=== PATIENT | female | born 1945 | race Caucasian/White ===

== ENCOUNTER 2023-05-14 11:34 | Inpatient (IN) | payer MEDICARE ==
[~2023-05-14] VITALS: Ht 152.4 cm; Wt 61.2 kg
[~2023-05-14 11:34] MED LIST: ALEN70TA80 PO; ASPI81TA31 PO; ATOR10TA PO; BUPR300T52 PO; CHOL200074 PO; CITA20TA16 PO; FEXO180T94 PO; FLUT16SP16 NS; FOLI1TAB94 PO; GABA-532 PO; LOSA100T31 PO; MECL-159 PO; MULT-1168 PO; OMEP20CA15 PO; TIOT18CA3 IH; TRAZ-182 PO; URSO250T3 PO; [UNRECOGNIZED DRUG - CODE] PO
[2023-05-15] MEDS ORDERED: REMEDY ESSENTIAL ZINC PASTE 113 GM TOP PRN (20:15)
[2023-05-15 20:37] VITALS: BP 137/66; TEMP 98.3; O2SAT 96
--- NOTE | 2023-05-15 21:00 | NUR ---
RECEIVED PATIENT LYING IN BED, AWAKE A/O X4, ABLE TO MAKE NEEDS KNOWN. VS WNL. IV SITE ON RIGHT FOREARM 22G, INTACT AND PATENT. ON O2 2LPM VIA NC SATING AT 96%. DENIES ANY PAIN OR DISCOMFORT. NO RESP. DISTRESS OR SOB NOTED. CALL LIGHT WITHIN REACH. ALL NEEDS ATTENDED TO AND MET. SAFETY PRECAUTIONS MAINTAINED. WILL CONTINUE TO MONITOR AND ASSESS.
[2023-05-15] MEDS ORDERED: TRAMADOL HCL 50 MG TABLET PO SCH (22:00)
[2023-05-15] MEDS ORDERED: TRAZODONE 50 MG TABLET PO PRN (22:15)
[2023-05-16 05:17] VITALS: BP 142/70; TEMP 98.7; O2SAT 97
[2023-05-16 05:52] VITALS: O2SAT 96
[2023-05-16] MEDS: PANTOPRAZOLE SODIUM 40 MG TABLET.DR PO SCH (06:18)
--- NOTE | 2023-05-16 07:30 | NUR ---
Patient awake and alert in bed. RN introduced self and discussed plan of care. No other concerns at this time.
[2023-05-16 07:44] VITALS: BP 138/65; TEMP 98.6; O2SAT 98
[2023-05-16 07:56] VITALS: BP 158/54; TEMP 98.1; O2SAT 97
[2023-05-16] MEDS: FEXOFENADINE HCL 180 MG TABLET PO SCH (09:13)
[2023-05-16] MEDS: CHOLECALCIFEROL 1,000 UNIT TABLET PO SCH (09:13)
[2023-05-16] MEDS: CITALOPRAM 20 MG TABLET PO SCH (09:14)
[2023-05-16] MEDS: MECLIZINE HCL 25 MG TABLET PO SCH ×2 (09:14→16:59)
[2023-05-16] MEDS: URSODIOL 300 MG CAPSULE PO SCH ×2 (09:14→16:59)
[2023-05-16] MEDS: FOLIC ACID 1 MG TABLET PO SCH (09:15)
[2023-05-16] MEDS: GABAPENTIN 100 MG CAPSULE PO SCH ×3 (09:15→16:59)
[2023-05-16] MEDS: MULTIVITAMINS,THERAPEUTIC TABLET PO SCH (09:15)
[2023-05-16] MEDS: buPROPion XL 150 MG TAB.SR.24H PO SCH (09:15)
[2023-05-16] MEDS: CALCIUM CITRA-VITAMIN D 315 MG-250 UNITS TABLET PO SCH (09:16)
[2023-05-16] MEDS: LOSARTAN POTASSIUM 50 MG TABLET PO SCH (09:17)
[2023-05-16] MEDS: ASPIRIN 81 MG TAB.CHEW PO SCH (09:22)
[2023-05-16] MEDS: TRAMADOL HCL 50 MG TABLET PO PRN (09:26)
[2023-05-16] MEDS: FLUTICASONE PROP NASAL SPRAY 16 GM BOTTLE NS SCH (09:37)
[2023-05-16] MEDS: ENOXAPARIN SODIUM 30 MG/0.3 ML DISP.SYRIN SUBCUT SCH (12:53)
[2023-05-16] MEDS ORDERED: HYDR-894 PO (15:48)
[2023-05-16] MEDS ORDERED: AMLO-212 PO (15:49)
[2023-05-16 16:00] VITALS: BP 132/63; TEMP 97.7; O2SAT 99
[2023-05-16] MEDS ORDERED: hydrALAZINE HCL 25 MG TABLET PO PRN (16:00)
[2023-05-16] MEDS ORDERED: FLUT1BLS IH (18:10)
[2023-05-16] MEDS: AMLODIPINE 5 MG TABLET PO SCH (20:07)
[2023-05-16] MEDS: ATORVASTATIN 10 MG TABLET PO SCH (20:07)
[2023-05-16 20:31] VITALS: BP 104/54; TEMP 98.7; O2SAT 93
[2023-05-17 02:10] VITALS: O2SAT 96
[2023-05-17 04:40] VITALS: BP 127/70; TEMP 98.4; O2SAT 98
--- NOTE | 2023-05-17 04:52 | NUR ---
Patient slept well throughout the night, no acute distress noted. Needs assessed and attended to.
[2023-05-17] MEDS: PANTOPRAZOLE SODIUM 40 MG TABLET.DR PO SCH (06:17)
[2023-05-17 07:33] LABS: HEMATOCRIT 25.6 % (31.2-41.9); MEAN CORPUSCULAR HEMOGLOBIN 27.9 uug (24.7-32.8); MEAN CORPUSCULAR VOLUME 87.6 fL (75.5-95.3); PLATELET COUNT (AUTO) 245 K/uL (179-408)
[2023-05-17 07:44] LABS: BILIRUBIN,TOTAL 0.3 mg/dL (0.2-1.0); MAGNESIUM 1.7 mg/dL (1.8-2.4); PHOSPHOROUS 3.3 mg/dL (2.5-4.9); POTASSIUM 4.3 mmol/L (3.5-5.1); TOTAL PROTEIN, SERUM 5.4 g/dL (6.4-8.2)
[2023-05-17 07:54] VITALS: BP 131/68; TEMP 98; O2SAT 96
[2023-05-17] MEDS: ENOXAPARIN SODIUM 30 MG/0.3 ML DISP.SYRIN SUBCUT SCH (08:12)
[2023-05-17] MEDS: FOLIC ACID 1 MG TABLET PO SCH (08:22)
[2023-05-17] MEDS: CITALOPRAM 20 MG TABLET PO SCH (08:22)
[2023-05-17] MEDS: CALCIUM CITRA-VITAMIN D 315 MG-250 UNITS TABLET PO SCH (08:22)
[2023-05-17] MEDS: AMLODIPINE 5 MG TABLET PO SCH ×2 (08:22→20:56)
[2023-05-17] MEDS: GABAPENTIN 100 MG CAPSULE PO SCH ×3 (08:22→16:21)
[2023-05-17] MEDS: buPROPion XL 150 MG TAB.SR.24H PO SCH (08:22)
[2023-05-17] MEDS: MECLIZINE HCL 25 MG TABLET PO SCH ×2 (08:23→16:21)
[2023-05-17] MEDS: CHOLECALCIFEROL 1,000 UNIT TABLET PO SCH (08:23)
[2023-05-17] MEDS: ASPIRIN 81 MG TAB.CHEW PO SCH (08:23)
[2023-05-17] MEDS: LOSARTAN POTASSIUM 50 MG TABLET PO SCH (08:23)
[2023-05-17] MEDS: MULTIVITAMINS,THERAPEUTIC TABLET PO SCH (08:23)
[2023-05-17] MEDS: FEXOFENADINE HCL 180 MG TABLET PO SCH (08:23)
[2023-05-17] MEDS: FLUTICASONE/VILANTEROL 1 EACH BLST.W.DEV INH SCH (08:24)
[2023-05-17] MEDS: FLUTICASONE PROP NASAL SPRAY 16 GM BOTTLE NS SCH (08:24)
[2023-05-17] MEDS: URSODIOL 300 MG CAPSULE PO SCH ×2 (08:26→16:23)
[2023-05-17] MEDS ORDERED: MAGNESIUM OXIDE 400 MG TABLET PO ONE ×2 (10:00→12:30)
[2023-05-17 11:20] VITALS: O2SAT 96
[2023-05-17] MEDS: MIRALAX 17 GM POWD.PACK PO SCH (14:40)
[2023-05-17] MEDS: TRAMADOL HCL 50 MG TABLET PO PRN (15:18)
[2023-05-17 15:48] VITALS: BP 103/56; TEMP 98.3; O2SAT 96
--- NOTE | 2023-05-17 20:00 | NUR ---
Received patient laying in bed, alert and oriented X3-4, often forgetful, potentially hard of hearing. In no acute distress, denies pain. IV site patent and intact, call light within reach. Will continue to monitor and continue plan of care.
[2023-05-17 20:34] VITALS: BP 113/63; TEMP 98.7; O2SAT 96
[2023-05-17] MEDS: ATORVASTATIN 10 MG TABLET PO SCH (20:56)
[2023-05-18 04:20] VITALS: BP 117/59; TEMP 98.7; O2SAT 98
[2023-05-18] MEDS: PANTOPRAZOLE SODIUM 40 MG TABLET.DR PO SCH (06:42)
[2023-05-18 07:50] VITALS: BP 141/65; TEMP 98.4; O2SAT 99
[2023-05-18] MEDS: LOSARTAN POTASSIUM 50 MG TABLET PO SCH (08:08)
[2023-05-18] MEDS: MECLIZINE HCL 25 MG TABLET PO SCH ×2 (08:08→16:25)
[2023-05-18] MEDS: ASPIRIN 81 MG TAB.CHEW PO SCH (08:08)
[2023-05-18] MEDS: CALCIUM CITRA-VITAMIN D 315 MG-250 UNITS TABLET PO SCH (08:09)
[2023-05-18] MEDS: CHOLECALCIFEROL 1,000 UNIT TABLET PO SCH (08:09)
[2023-05-18] MEDS: buPROPion XL 150 MG TAB.SR.24H PO SCH (08:09)
[2023-05-18] MEDS: GABAPENTIN 100 MG CAPSULE PO SCH ×3 (08:14→16:25)
[2023-05-18] MEDS: FEXOFENADINE HCL 180 MG TABLET PO SCH (08:14)
[2023-05-18] MEDS: FOLIC ACID 1 MG TABLET PO SCH (08:14)
[2023-05-18] MEDS: CITALOPRAM 20 MG TABLET PO SCH (08:14)
[2023-05-18] MEDS: MULTIVITAMINS,THERAPEUTIC TABLET PO SCH (08:14)
[2023-05-18] MEDS: MIRALAX 17 GM POWD.PACK PO SCH (08:15)
[2023-05-18] MEDS: FLUTICASONE/VILANTEROL 1 EACH BLST.W.DEV INH SCH (08:15)
[2023-05-18] MEDS: FLUTICASONE PROP NASAL SPRAY 16 GM BOTTLE NS SCH (08:15)
[2023-05-18] MEDS: AMLODIPINE 5 MG TABLET PO SCH ×2 (08:15→21:24)
[2023-05-18] MEDS: TRAMADOL HCL 50 MG TABLET PO PRN (08:17)
[2023-05-18] MEDS: ENOXAPARIN SODIUM 30 MG/0.3 ML DISP.SYRIN SUBCUT SCH (08:38)
[2023-05-18] MEDS: URSODIOL 300 MG CAPSULE PO SCH ×2 (08:38→16:25)
--- NOTE | 2023-05-18 11:31 | NUR ---
INDIVIDUALIZED PLAN OF CARE
[2023-05-18 13:16] VITALS: O2SAT 96
[2023-05-18 16:01] VITALS: BP 114/66; TEMP 98.5; O2SAT 95
[2023-05-18 20:00] VITALS: BP 122/57; TEMP 98.3; O2SAT 94
[2023-05-18] MEDS: ATORVASTATIN 10 MG TABLET PO SCH (21:24)
[2023-05-19 04:00] VITALS: BP 121/57; TEMP 98.7; O2SAT 96
[2023-05-19] MEDS: ALENDRONATE SODIUM 70 MG TABLET PO SCH (05:18)
--- NOTE | 2023-05-19 05:31 | NUR ---
Pt received in bed with Purewick system in place observed yellow urine color. Pt took fine her PO medication. No family present to update plan of care. Pt rested well all night without any discomfort. Endorse care to incoming nurse
[2023-05-19] MEDS: PANTOPRAZOLE SODIUM 40 MG TABLET.DR PO SCH (06:17)
[2023-05-19 08:00] VITALS: BP 132/70; TEMP 97.6; O2SAT 97
--- NOTE | 2023-05-19 08:00 | NUR ---
Received patient lying in bed, alert, awake and oriented X3-4, often forgetful, potentially hard of hearing In no acute distress, denies pain. IV site at RFA g.20 patent and intact, call light within reach Vital signs taken and recorded. Medications given and tolerated Seen and examined by Dr. Garay, continue plan of care, continue PT and OT Monitor intake and output Observed accordingly, needs attended.
[2023-05-19] MEDS: FEXOFENADINE HCL 180 MG TABLET PO SCH (08:25)
[2023-05-19] MEDS: ASPIRIN 81 MG TAB.CHEW PO SCH (08:25)
[2023-05-19] MEDS: CITALOPRAM 20 MG TABLET PO SCH (08:25)
[2023-05-19] MEDS: CHOLECALCIFEROL 1,000 UNIT TABLET PO SCH (08:25)
[2023-05-19] MEDS: buPROPion XL 150 MG TAB.SR.24H PO SCH (08:26)
[2023-05-19] MEDS: AMLODIPINE 5 MG TABLET PO SCH ×2 (08:26→20:30)
[2023-05-19] MEDS: CALCIUM CITRA-VITAMIN D 315 MG-250 UNITS TABLET PO SCH (08:27)
[2023-05-19] MEDS: MIRALAX 17 GM POWD.PACK PO SCH (08:32)
[2023-05-19] MEDS: MULTIVITAMINS,THERAPEUTIC TABLET PO SCH (08:32)
[2023-05-19] MEDS: GABAPENTIN 100 MG CAPSULE PO SCH ×3 (08:32→16:37)
[2023-05-19] MEDS: URSODIOL 300 MG CAPSULE PO SCH ×2 (08:32→16:37)
[2023-05-19] MEDS: LOSARTAN POTASSIUM 50 MG TABLET PO SCH (08:33)
[2023-05-19] MEDS: MECLIZINE HCL 25 MG TABLET PO SCH ×2 (08:33→16:37)
[2023-05-19] MEDS: FOLIC ACID 1 MG TABLET PO SCH (08:33)
[2023-05-19] MEDS: FLUTICASONE/VILANTEROL 1 EACH BLST.W.DEV INH SCH (08:34)
[2023-05-19] MEDS: FLUTICASONE PROP NASAL SPRAY 16 GM BOTTLE NS SCH (08:34)
[2023-05-19] MEDS: ENOXAPARIN SODIUM 30 MG/0.3 ML DISP.SYRIN SUBCUT SCH (08:37)
[2023-05-19 12:00] VITALS: O2SAT 96
--- NOTE | 2023-05-19 13:40 | NUR ---
Seen patient asleep comfortably in bed, no acute change from morning assessment. No signs of distress or discomfort Attended
[2023-05-19] MEDS: TRAMADOL HCL 50 MG TABLET PO PRN (14:37)
[2023-05-19 16:24] VITALS: BP 103/52; TEMP 98.1; O2SAT 96
[2023-05-19 20:00] VITALS: BP 101/47; TEMP 98.1; O2SAT 98
[2023-05-19] MEDS: ATORVASTATIN 10 MG TABLET PO SCH (20:30)
[2023-05-20 04:00] VITALS: BP 108/58; TEMP 98.5; O2SAT 98
--- NOTE | 2023-05-20 06:13 | NUR ---
Pt received in bed denies any pain and refuses any sleeping medication, pt drinks plenty fluids and purewick was removed Pt incontinent pericare done after every incontinence. Pt took her PO Meds without any difficult, continue monitoring condition and endorse care to incoming nurse
[2023-05-20] MEDS: PANTOPRAZOLE SODIUM 40 MG TABLET.DR PO SCH (06:37)
--- NOTE | 2023-05-20 06:39 | NUR ---
Pt awakes this AM pleasant and agrees to place a purewick system. Pt remains in bed comfortable purewick in place.
[2023-05-20 07:46] VITALS: BP 136/53; TEMP 98.2; O2SAT 100
[2023-05-20] MEDS: FEXOFENADINE HCL 180 MG TABLET PO SCH (08:49)
[2023-05-20] MEDS: buPROPion XL 150 MG TAB.SR.24H PO SCH (08:49)
[2023-05-20] MEDS: MULTIVITAMINS,THERAPEUTIC TABLET PO SCH (08:50)
[2023-05-20] MEDS: LOSARTAN POTASSIUM 50 MG TABLET PO SCH (08:50)
[2023-05-20] MEDS: CHOLECALCIFEROL 1,000 UNIT TABLET PO SCH (08:50)
[2023-05-20] MEDS: CALCIUM CITRA-VITAMIN D 315 MG-250 UNITS TABLET PO SCH (08:50)
[2023-05-20] MEDS: GABAPENTIN 100 MG CAPSULE PO SCH ×3 (08:50→16:33)
[2023-05-20] MEDS: AMLODIPINE 5 MG TABLET PO SCH ×2 (08:50→20:38)
[2023-05-20] MEDS: ASPIRIN 81 MG TAB.CHEW PO SCH (08:50)
[2023-05-20] MEDS: CITALOPRAM 20 MG TABLET PO SCH (08:50)
[2023-05-20] MEDS: MECLIZINE HCL 25 MG TABLET PO SCH ×2 (08:50→16:33)
[2023-05-20] MEDS: MIRALAX 17 GM POWD.PACK PO SCH (08:51)
[2023-05-20] MEDS: URSODIOL 300 MG CAPSULE PO SCH ×2 (08:51→16:34)
[2023-05-20] MEDS: FLUTICASONE/VILANTEROL 1 EACH BLST.W.DEV INH SCH (08:51)
[2023-05-20] MEDS: FLUTICASONE PROP NASAL SPRAY 16 GM BOTTLE NS SCH (08:52)
[2023-05-20] MEDS: ENOXAPARIN SODIUM 30 MG/0.3 ML DISP.SYRIN SUBCUT SCH (08:53)
[2023-05-20] MEDS: FOLIC ACID 1 MG TABLET PO SCH (08:57)
--- NOTE | 2023-05-20 13:23 | NUR ---
Received patient lying in bed, alert, awake and oriented X3-4, often forgetful, potentially hard of hearing In no acute distress, denies pain, no SOB. With oxygen at 2 lpm via nasal cannula. IV site at RFA g.20 patent and intact, call light within reach. Vital signs taken and recorded. Medications given and tolerated Seen and examined by Dr. Garay, continue plan of care, continue PT and OT Monitor intake and output Seen by physical therapist Observed accordingly, needs attended.
[2023-05-20] MEDS: OXYCODONE/APAP 5-325 MG TABLET PO SCH ×2 (13:30→22:00)
[2023-05-20 16:48] VITALS: BP 94/42; TEMP 97.9; O2SAT 93
[2023-05-20 20:00] VITALS: BP 94/46; TEMP 97.8; O2SAT 96
[2023-05-20] MEDS: ATORVASTATIN 10 MG TABLET PO SCH (20:38)
--- NOTE | 2023-05-20 22:30 | NUR ---
PATIENT ASLEEP IN BED. NO S/S OF ANY PAIN OR DISCOMFORT. NO FACIAL GRIMACE NOTED. LOW BP NOTED. 95/45. WILL CONTINUE TO MONITOR AND ASSESS.
[2023-05-21] VITALS (8 sets, daily range): BP systolic 87–135; BP diastolic 38–68; TEMP 97.5–98.9; O2SAT 93–98
[2023-05-21] MEDS: OXYCODONE/APAP 5-325 MG TABLET PO SCH ×3 (05:05→21:52)
[2023-05-21] MEDS: PANTOPRAZOLE SODIUM 40 MG TABLET.DR PO SCH (06:03)
[2023-05-21] MEDS: LOSARTAN POTASSIUM 50 MG TABLET PO SCH (08:23)
[2023-05-21] MEDS: CALCIUM CITRA-VITAMIN D 315 MG-250 UNITS TABLET PO SCH (08:23)
[2023-05-21] MEDS: ASPIRIN 81 MG TAB.CHEW PO SCH (08:23)
[2023-05-21] MEDS: AMLODIPINE 5 MG TABLET PO SCH ×2 (08:23→21:48)
[2023-05-21] MEDS: CITALOPRAM 20 MG TABLET PO SCH (08:23)
[2023-05-21] MEDS: FEXOFENADINE HCL 180 MG TABLET PO SCH (08:23)
[2023-05-21] MEDS: buPROPion XL 150 MG TAB.SR.24H PO SCH (08:23)
[2023-05-21] MEDS: MULTIVITAMINS,THERAPEUTIC TABLET PO SCH (08:24)
[2023-05-21] MEDS: GABAPENTIN 100 MG CAPSULE PO SCH ×3 (08:24→16:39)
[2023-05-21] MEDS: CHOLECALCIFEROL 1,000 UNIT TABLET PO SCH (08:24)
[2023-05-21] MEDS: FLUTICASONE PROP NASAL SPRAY 16 GM BOTTLE NS SCH (08:24)
[2023-05-21] MEDS: URSODIOL 300 MG CAPSULE PO SCH ×2 (08:24→16:39)
[2023-05-21] MEDS: MECLIZINE HCL 25 MG TABLET PO SCH ×2 (08:24→16:39)
[2023-05-21] MEDS: FLUTICASONE/VILANTEROL 1 EACH BLST.W.DEV INH SCH (08:24)
[2023-05-21] MEDS: FOLIC ACID 1 MG TABLET PO SCH (08:24)
[2023-05-21] MEDS: MIRALAX 17 GM POWD.PACK PO SCH (08:25)
[2023-05-21] MEDS: ENOXAPARIN SODIUM 30 MG/0.3 ML DISP.SYRIN SUBCUT SCH (08:26)
--- NOTE | 2023-05-21 09:42 | NUR ---
0730-Rec'd patient in bed, asleep, able to wake up on verbal commands. Patient denies pain, no respiratory distress noted, oxygen via nc @ 2lpm and saturating well. Patient Wol[place] speaking, able to communicate her needs and follow directions. Safety measures in place and call light at reach. 0900-Scheduled medications administered as ordered, no ASE noted. Patient eating breakfast at this time, denies GI discomfort, no N/V noted, assist as needed.
--- NOTE | 2023-05-21 18:17 | NUR ---
1700-Patient in bed at this time, meal tray delivered and assist to set up meal tray, patient able to feed herself. HOB elevated, no swallowing problems noted. Patient in no physical or respiratory distress, denies GI discomfort/any pain & raj. meals well through out the shift. Assist provided as needed; care provided at routine intervals/PRN. Routine rounds and frequent visual checks done. Call lights answered promptly and timely. All needs anticipated and met.
[2023-05-21] MEDS: ATORVASTATIN 10 MG TABLET PO SCH (21:48)
[2023-05-22] VITALS (9 sets, daily range): BP systolic 90–115; BP diastolic 43–69; TEMP 97.8–98.4; O2SAT 96–99
[2023-05-22] MEDS: PANTOPRAZOLE SODIUM 40 MG TABLET.DR PO SCH (06:16)
[2023-05-22] MEDS: OXYCODONE/APAP 5-325 MG TABLET PO SCH ×3 (06:16→22:00)
[2023-05-22] MEDS: FLUTICASONE/VILANTEROL 1 EACH BLST.W.DEV INH SCH (08:50)
[2023-05-22] MEDS: FLUTICASONE PROP NASAL SPRAY 16 GM BOTTLE NS SCH (08:50)
[2023-05-22] MEDS: FEXOFENADINE HCL 180 MG TABLET PO SCH (08:51)
[2023-05-22] MEDS: AMLODIPINE 5 MG TABLET PO SCH (08:51)
[2023-05-22] MEDS: CHOLECALCIFEROL 1,000 UNIT TABLET PO SCH (08:51)
[2023-05-22] MEDS: ASPIRIN 81 MG TAB.CHEW PO SCH (08:51)
[2023-05-22] MEDS: LOSARTAN POTASSIUM 50 MG TABLET PO SCH (08:52)
[2023-05-22] MEDS: GABAPENTIN 100 MG CAPSULE PO SCH ×3 (08:52→16:18)
[2023-05-22] MEDS: MIRALAX 17 GM POWD.PACK PO SCH (08:53)
[2023-05-22] MEDS: MECLIZINE HCL 25 MG TABLET PO SCH ×2 (08:53→16:18)
[2023-05-22] MEDS: FOLIC ACID 1 MG TABLET PO SCH (08:53)
[2023-05-22] MEDS: CITALOPRAM 20 MG TABLET PO SCH (08:53)
[2023-05-22] MEDS: CALCIUM CITRA-VITAMIN D 315 MG-250 UNITS TABLET PO SCH (08:53)
[2023-05-22] MEDS: buPROPion XL 150 MG TAB.SR.24H PO SCH (08:53)
[2023-05-22] MEDS: MULTIVITAMINS,THERAPEUTIC TABLET PO SCH (08:53)
[2023-05-22] MEDS: GLUCERNA SHAKE 237 ML CAN PO SCH (08:59)
[2023-05-22] MEDS: URSODIOL 300 MG CAPSULE PO SCH ×2 (09:28→16:18)
--- NOTE | 2023-05-22 10:18 | NUR ---
INTERDISCIPLINARY TEAM CONFERENCE
--- NOTE | 2023-05-22 12:46 | NUR ---
0730-Upon shift exchange rounds, patient in bed with HOB elevated, awake, AOx3, able to follow simple directions and verbalize her needs. Patient denies pain, no SS of respiratory distress noted, on oxygen via N/C as ordered and raj. well. Safety measures in place and call light at reach, encouraged to use it for help when needed with good understanding. 0900-Scheduled medications administered as ordered, no ASE noted, will monitor. HOB elevated, aspiration precautions observed. 1100-OOB with PT for her physical therapy session, raj. well and actively able to participate in therapy.
--- NOTE | 2023-05-22 17:46 | NUR ---
0900-[facility] and Cozaar held at this time due to low blood pressure, patient with no s/s hypotension, denies lightheadedness or dizziness. Dr. Cameron informed acknowledged and agreed to hold medication at this time.
--- NOTE | 2023-05-22 19:10 | NUR ---
Patient in usual baseline conditions, no changes noted during shift. Assisted to the restroom as needed. Care provided at routine intervals and as needed. Patient was seen by Dr. Barriga (can coverer) & per MD to try weaning patient off the oxygen; however, patient states she has always used oxygen, and willing to try off of oxygen but desaturated. Patient back on oxygen at 2LPM and raj. well. OOB with rehab staff for her PT/OT skilled services as ordered, patient raj. well and actively involved in therapy. Safety precautions observed. Needs anticipated and met. Kept clean/comfortable. Call lights answered promptly and needs met timely. Pain well managed.
[2023-05-22] MEDS: ATORVASTATIN 10 MG TABLET PO SCH (20:42)
[2023-05-23 04:00] VITALS: BP 124/57; TEMP 98.1; O2SAT 100
--- NOTE | 2023-05-23 05:50 | NUR ---
Patient in stable condition, no acute distress, slept well throughout the night. Pain medication administered as scheduled. Needs assessed and attended to.
[2023-05-23] MEDS: OXYCODONE/APAP 5-325 MG TABLET PO SCH ×3 (05:53→21:17)
[2023-05-23] MEDS: PANTOPRAZOLE SODIUM 40 MG TABLET.DR PO SCH (06:10)
[2023-05-23 07:23] LABS: ALANINE AMINOTRANSFERASE 37 U/L (14-59); ALKALINE PHOSPHATASE 328 U/L (50-136); ASPARTATE AMINOTRANSFERASE 32 U/L (15-37); BILIRUBIN,TOTAL 0.3 mg/dL (0.2-1.0); CARBON DIOXIDE 32 mmol/L (21-32); CHLORIDE 102 mmol/L (98-107); CREATININE 1.4 mg/dL (0.6-1.3); MAGNESIUM 2.1 mg/dL (1.8-2.4); PHOSPHOROUS 3.9 mg/dL (2.5-4.9); POTASSIUM 4.6 mmol/L (3.5-5.1); UREA NITROGEN, BLOOD 34 mg/dL (7-18)
[2023-05-23 07:26] LABS: HEMATOCRIT 22.2 % (31.2-41.9); MEAN CORPUSCULAR HEMOGLOBIN 27.2 uug (24.7-32.8); MEAN CORPUSCULAR VOLUME 84.2 fL (75.5-95.3); PLATELET COUNT (AUTO) 313 K/uL (179-408)
[2023-05-23 07:45] VITALS: BP 121/61; TEMP 97.8; O2SAT 96
--- NOTE | 2023-05-23 07:47 | NUR ---
received lab result glucose of 52. rechecked 78, patient is alert, oriented x4, no sweating, asymptomatic. apple juice given, patient drank it. continue to monitor. MD aware.
[2023-05-23] MEDS: FLUTICASONE/VILANTEROL 1 EACH BLST.W.DEV INH SCH (09:33)
[2023-05-23] MEDS: FLUTICASONE PROP NASAL SPRAY 16 GM BOTTLE NS SCH (09:34)
[2023-05-23] MEDS: MIRALAX 17 GM POWD.PACK PO SCH (09:35)
[2023-05-23] MEDS: MULTIVITAMINS,THERAPEUTIC TABLET PO SCH (09:35)
[2023-05-23] MEDS: CHOLECALCIFEROL 1,000 UNIT TABLET PO SCH (09:35)
[2023-05-23] MEDS: CALCIUM CITRA-VITAMIN D 315 MG-250 UNITS TABLET PO SCH (09:35)
[2023-05-23] MEDS: URSODIOL 300 MG CAPSULE PO SCH ×2 (09:35→17:32)
[2023-05-23] MEDS: ASPIRIN 81 MG TAB.CHEW PO SCH (09:36)
[2023-05-23] MEDS: MECLIZINE HCL 25 MG TABLET PO SCH ×2 (09:36→17:32)
[2023-05-23] MEDS: FOLIC ACID 1 MG TABLET PO SCH (09:36)
[2023-05-23] MEDS: buPROPion XL 150 MG TAB.SR.24H PO SCH (09:36)
[2023-05-23] MEDS: FEXOFENADINE HCL 180 MG TABLET PO SCH (09:36)
[2023-05-23] MEDS: CITALOPRAM 20 MG TABLET PO SCH (09:36)
[2023-05-23] MEDS: GABAPENTIN 100 MG CAPSULE PO SCH ×3 (09:38→17:32)
[2023-05-23] MEDS: AMLODIPINE 5 MG TABLET PO SCH ×2 (09:40→20:55)
[2023-05-23] MEDS: GLUCERNA SHAKE 237 ML CAN PO SCH (09:41)
[2023-05-23] MEDS ORDERED: IV D5/ 0.9% NACL 1,000 ML IV PRN (10:15)
[2023-05-23 15:51] VITALS: BP 121/64; TEMP 98.3; O2SAT 97
--- NOTE | 2023-05-23 19:56 | NUR ---
NSG; Received patient lying in bed, alert, awake and oriented X3-4, Patient potentially hard of hearing In no acute distress, skin color pale. Denies pain, no SOB. With oxygen at 2l/min via nasal cannula. IV site at RFA g.20 patent and intact, call light within reach.
[2023-05-23] MEDS: ATORVASTATIN 10 MG TABLET PO SCH (20:55)
[2023-05-23 21:09] VITALS: BP 111/51; TEMP 97.5; O2SAT 98
--- NOTE | 2023-05-24 00:42 | NUR ---
NSG; patient asleep comfortably in bed, No signs of distress noted at this time. call light w/in reach.
[2023-05-24 05:26] VITALS: BP 143/64; TEMP 97.9; O2SAT 95
[2023-05-24] MEDS: OXYCODONE/APAP 5-325 MG TABLET PO SCH ×3 (06:11→22:02)
[2023-05-24] MEDS: PANTOPRAZOLE SODIUM 40 MG TABLET.DR PO SCH (06:11)
[2023-05-24] MEDS: ALENDRONATE SODIUM 70 MG TABLET PO SCH (06:12)
[2023-05-24 06:38] LABS: HEMATOCRIT 22.1 % (31.2-41.9); MEAN CORPUSCULAR HEMOGLOBIN 27.2 uug (24.7-32.8); MEAN CORPUSCULAR VOLUME 84.5 fL (75.5-95.3); PLATELET COUNT (AUTO) 283 K/uL (179-408)
--- NOTE | 2023-05-24 06:42 | NUR ---
NSG: REMAIN CALM AND COMFORTABLE. NO C/O PAIN OR DISCOMFORT AT THIS TIME. ASSISTED WITH ADL'S. CALL LIGHT W/IN REACH.
[2023-05-24 07:01] LABS: ALANINE AMINOTRANSFERASE 31 U/L (14-59); ALKALINE PHOSPHATASE 306 U/L (50-136); ASPARTATE AMINOTRANSFERASE 28 U/L (15-37); BILIRUBIN,TOTAL 0.5 mg/dL (0.2-1.0); CARBON DIOXIDE 31 mmol/L (21-32); CHLORIDE 104 mmol/L (98-107); MAGNESIUM 1.7 mg/dL (1.8-2.4); PHOSPHOROUS 3.1 mg/dL (2.5-4.9); POTASSIUM 3.7 mmol/L (3.5-5.1); TOTAL PROTEIN, SERUM 5.7 g/dL (6.4-8.2); UREA NITROGEN, BLOOD 22 mg/dL (7-18)
[2023-05-24 07:24] LABS: *BILIRUBIN,URIN NEGATIVE (NEGATIVE); *BLOOD, URINE NEGATIVE (NEGATIVE); *CLARITY,URINE CLEAR (CLEAR); *COLOR,URINE YELLOW (YELLOW); *KETONES,URINE NEGATIVE (NEGATIVE); *UROBILINOGEN,URINE 0.2 E.U./dl (NORMAL); LEUKOCYTE ESTERASE ,URINE NEGATIVE (NEGATIVE); NITRITE, URINE NEGATIVE (NEGATIVE); PH,URINE 7.5 (5.0-8.0); UGLUCOSE NEGATIVE (NEGATIVE)
[2023-05-24] MEDS: FEXOFENADINE HCL 180 MG TABLET PO SCH (08:00)
[2023-05-24] MEDS: AMLODIPINE 5 MG TABLET PO SCH ×2 (08:00→20:48)
[2023-05-24] MEDS: MULTIVITAMINS,THERAPEUTIC TABLET PO SCH (08:00)
[2023-05-24] MEDS: URSODIOL 300 MG CAPSULE PO SCH ×2 (08:00→17:09)
[2023-05-24] MEDS: GABAPENTIN 100 MG CAPSULE PO SCH ×3 (08:01→17:09)
[2023-05-24] MEDS: CHOLECALCIFEROL 1,000 UNIT TABLET PO SCH (08:01)
[2023-05-24] MEDS: CITALOPRAM 20 MG TABLET PO SCH (08:01)
[2023-05-24] MEDS: buPROPion XL 150 MG TAB.SR.24H PO SCH (08:01)
[2023-05-24] MEDS: FOLIC ACID 1 MG TABLET PO SCH (08:01)
[2023-05-24] MEDS: CALCIUM CITRA-VITAMIN D 315 MG-250 UNITS TABLET PO SCH (08:02)
[2023-05-24] MEDS: ASPIRIN 81 MG TAB.CHEW PO SCH (08:02)
[2023-05-24] MEDS: MECLIZINE HCL 25 MG TABLET PO SCH ×2 (08:02→17:09)
[2023-05-24] MEDS: FLUTICASONE/VILANTEROL 1 EACH BLST.W.DEV INH SCH (08:03)
[2023-05-24] MEDS: GLUCERNA SHAKE 237 ML CAN PO SCH (08:04)
[2023-05-24] MEDS: FLUTICASONE PROP NASAL SPRAY 16 GM BOTTLE NS SCH (08:04)
[2023-05-24 08:05] VITALS: BP 114/69; TEMP 97.9; O2SAT 98
[2023-05-24] MEDS: MIRALAX 17 GM POWD.PACK PO SCH (08:05)
[2023-05-24 08:09] LABS: *CREATININE,URINE < 13.0 mg/dL (30-125)
[2023-05-24 08:31] LABS: *URINE TOTAL PROTEIN RANDOM < 6.0 mg/dL (<150/24HR)
[2023-05-24] MEDS ORDERED: MAGNESIUM OXIDE 400 MG TABLET PO ONE ×2 (10:00→12:15)
[2023-05-24 12:00] VITALS: O2SAT 98
[2023-05-24 16:00] VITALS: BP 126/62; TEMP 97.8; O2SAT 95
[2023-05-24 18:05] LABS: *OCCULT BLOOD STOOL NEGATIVE (NEGATIVE)
[2023-05-24] MEDS ORDERED: FUROSEMIDE 20 MG/2 ML VIAL IV ONE (19:15)
--- NOTE | 2023-05-24 19:18 | NUR ---
noted with audible wheezing, md aware, lasix as ordered, IV fluids dcd
--- NOTE | 2023-05-24 19:26 | NUR ---
NSG; Received patient lying in bed, alert, awake and oriented X4, Patient potentially hard of hearing In no acute distress, skin color pale. Denies pain, no SOB. With oxygen at 4L/min via nasal cannula. IV site at RFA g.20 patent and intact, call light within reach.
[2023-05-24] MEDS: ATORVASTATIN 10 MG TABLET PO SCH (20:48)
[2023-05-24 22:17] VITALS: BP 138/76; TEMP 98.5; O2SAT 94
--- NOTE | 2023-05-24 22:33 | NUR ---
NSG: Patient voided 700ml clear urine after Lasix 20 mg iv given. no sob noted pt resting comfortably. call light w/in reach.
[2023-05-25 04:30] VITALS: BP 133/56; TEMP 98.2; O2SAT 100
--- NOTE | 2023-05-25 05:04 | NUR ---
NSG: RESTING IN BED COMFORTABLY. REMAIN CALM AND COMFORTABLE. NO C/O PAIN OR DISCOMFORT AT THIS TIME. ASSISTED WITH ADL'S. CALL LIGHT W/IN REACH.
--- NOTE | 2023-05-25 05:13 | NUR ---
NSG: REMAIN CALM AND COMFORTABLE. NO C/O PAIN OR DISCOMFORT AT THIS TIME. ASSISTED WITH ADL'S. CALL LIGHT W/IN REACH.
[2023-05-25] MEDS: OXYCODONE/APAP 5-325 MG TABLET PO SCH ×2 (05:35→13:13)
[2023-05-25] MEDS: PANTOPRAZOLE SODIUM 40 MG TABLET.DR PO SCH (05:58)
[2023-05-25 07:31] LABS: HEMATOCRIT 26.4 % (31.2-41.9); MEAN CORPUSCULAR HEMOGLOBIN 27.1 uug (24.7-32.8); MEAN CORPUSCULAR VOLUME 84.4 fL (75.5-95.3); PLATELET COUNT (AUTO) 357 K/uL (179-408)
[2023-05-25 07:36] VITALS: BP 140/70; TEMP 98.7; O2SAT 99
[2023-05-25 07:52] LABS: CARBON DIOXIDE 35 mmol/L (21-32); CHLORIDE 101 mmol/L (98-107); MAGNESIUM 2.1 mg/dL (1.8-2.4); PHOSPHOROUS 3.1 mg/dL (2.5-4.9); POTASSIUM 3.5 mmol/L (3.5-5.1); UREA NITROGEN, BLOOD 18 mg/dL (7-18)
[2023-05-25] MEDS: URSODIOL 300 MG CAPSULE PO SCH ×2 (08:40→17:15)
[2023-05-25] MEDS: FLUTICASONE/VILANTEROL 1 EACH BLST.W.DEV INH SCH (08:40)
[2023-05-25] MEDS: FLUTICASONE PROP NASAL SPRAY 16 GM BOTTLE NS SCH (08:40)
[2023-05-25] MEDS: MIRALAX 17 GM POWD.PACK PO SCH (08:40)
[2023-05-25] MEDS: CITALOPRAM 20 MG TABLET PO SCH (08:46)
[2023-05-25] MEDS: CALCIUM CITRA-VITAMIN D 315 MG-250 UNITS TABLET PO SCH (08:46)
[2023-05-25] MEDS: MULTIVITAMINS,THERAPEUTIC TABLET PO SCH (08:46)
[2023-05-25] MEDS: FEXOFENADINE HCL 180 MG TABLET PO SCH (08:46)
[2023-05-25] MEDS: CHOLECALCIFEROL 1,000 UNIT TABLET PO SCH (08:47)
[2023-05-25] MEDS: ASPIRIN 81 MG TAB.CHEW PO SCH (08:47)
[2023-05-25] MEDS: MECLIZINE HCL 25 MG TABLET PO SCH ×2 (08:47→17:15)
[2023-05-25] MEDS: buPROPion XL 150 MG TAB.SR.24H PO SCH (08:47)
[2023-05-25] MEDS: AMLODIPINE 5 MG TABLET PO SCH (08:47)
[2023-05-25] MEDS: FOLIC ACID 1 MG TABLET PO SCH (08:47)
[2023-05-25] MEDS: GLUCERNA SHAKE 237 ML CAN PO SCH (08:48)
[2023-05-25] MEDS: GABAPENTIN 100 MG CAPSULE PO SCH ×3 (08:49→17:15)
[2023-05-25] MEDS ORDERED: SIMETHICONE 80 MG TAB.CHEW PO PRN (10:45)
[2023-05-25 15:48] VITALS: O2SAT 97
[2023-05-25 16:31] VITALS: BP 123/62; TEMP 98; O2SAT 98
[2023-05-25 20:00] VITALS: BP 134/73; TEMP 98.5; O2SAT 98
[2023-05-26] MEDS: AMLODIPINE 5 MG TABLET PO SCH ×3 (00:25→21:00)
[2023-05-26] MEDS: OXYCODONE/APAP 5-325 MG TABLET PO SCH ×4 (00:25→21:53)
[2023-05-26] MEDS: ATORVASTATIN 10 MG TABLET PO SCH ×2 (00:25→21:53)
[2023-05-26 02:56] VITALS: O2SAT 97
[2023-05-26 04:00] VITALS: BP 131/71; TEMP 98.3; O2SAT 100
[2023-05-26] MEDS: PANTOPRAZOLE SODIUM 40 MG TABLET.DR PO SCH (06:54)
[2023-05-26] MEDS: ALENDRONATE SODIUM 70 MG TABLET PO SCH (06:55)
[2023-05-26 08:19] VITALS: BP 101/65; TEMP 98.3; O2SAT 100
[2023-05-26] MEDS: ASPIRIN 81 MG TAB.CHEW PO SCH (08:57)
[2023-05-26] MEDS: GABAPENTIN 100 MG CAPSULE PO SCH ×3 (08:57→16:05)
[2023-05-26] MEDS: CITALOPRAM 20 MG TABLET PO SCH (08:57)
[2023-05-26] MEDS: FEXOFENADINE HCL 180 MG TABLET PO SCH (08:57)
[2023-05-26] MEDS: CALCIUM CITRA-VITAMIN D 315 MG-250 UNITS TABLET PO SCH (08:57)
[2023-05-26] MEDS: buPROPion XL 150 MG TAB.SR.24H PO SCH (08:57)
[2023-05-26] MEDS: MULTIVITAMINS,THERAPEUTIC TABLET PO SCH (08:57)
[2023-05-26] MEDS: CHOLECALCIFEROL 1,000 UNIT TABLET PO SCH (08:58)
[2023-05-26] MEDS: MECLIZINE HCL 25 MG TABLET PO SCH ×2 (08:58→16:05)
[2023-05-26] MEDS: FOLIC ACID 1 MG TABLET PO SCH (08:58)
[2023-05-26] MEDS: MIRALAX 17 GM POWD.PACK PO SCH (09:02)
[2023-05-26] MEDS: GLUCERNA SHAKE 237 ML CAN PO SCH (09:02)
[2023-05-26] MEDS: FLUTICASONE PROP NASAL SPRAY 16 GM BOTTLE NS SCH (09:03)
[2023-05-26] MEDS: URSODIOL 300 MG CAPSULE PO SCH ×2 (09:03→16:05)
[2023-05-26] MEDS: FLUTICASONE/VILANTEROL 1 EACH BLST.W.DEV INH SCH (09:03)
--- NOTE | 2023-05-26 10:05 | NUR ---
Rcvd pt. in bed resting comfortably in semi-fowlers position. AAO x4. Pt. on o2 @ 2LPM saturating 97-98%. Denies any pain at this time. Routine medication given and pt tolerated it. Fall risk and aspiration precaution. Call light within reach. Needs attended.
[2023-05-26 15:33] VITALS: O2SAT 98
[2023-05-26 16:03] VITALS: BP 118/58; TEMP 98.1; O2SAT 95
--- NOTE | 2023-05-26 17:52 | NUR ---
No resp. distress noted at this time. O2 sat 98% @ 2lpm. Pure wick draining good. Denies pain and discomfort. With 15 mins. gait training with physical therapy. Pt. in comfortable position keeping her clean and dry. Last bowel movement this am; medium and formed. Provided menu list for food preferences.
[2023-05-26 20:00] VITALS: BP 106/57; TEMP 98.2; O2SAT 96
[2023-05-27 03:57] VITALS: O2SAT 98
[2023-05-27 04:00] VITALS: BP 128/63; TEMP 97.9; O2SAT 99
[2023-05-27] MEDS: PANTOPRAZOLE SODIUM 40 MG TABLET.DR PO SCH (06:28)
[2023-05-27] MEDS: OXYCODONE/APAP 5-325 MG TABLET PO SCH ×3 (06:28→21:56)
--- NOTE | 2023-05-27 07:30 | NUR ---
REPORT GIVEN TO DAY RN
[2023-05-27 07:34] VITALS: BP 113/62; TEMP 98.4; O2SAT 99
[2023-05-27] MEDS: MIRALAX 17 GM POWD.PACK PO SCH (09:08)
[2023-05-27] MEDS: FLUTICASONE/VILANTEROL 1 EACH BLST.W.DEV INH SCH (09:08)
[2023-05-27] MEDS: FLUTICASONE PROP NASAL SPRAY 16 GM BOTTLE NS SCH (09:08)
[2023-05-27] MEDS: URSODIOL 300 MG CAPSULE PO SCH ×2 (09:09→16:43)
[2023-05-27] MEDS: CHOLECALCIFEROL 1,000 UNIT TABLET PO SCH (09:09)
[2023-05-27] MEDS: GABAPENTIN 100 MG CAPSULE PO SCH ×3 (09:09→16:43)
[2023-05-27] MEDS: ASPIRIN 81 MG TAB.CHEW PO SCH (09:09)
[2023-05-27] MEDS: MULTIVITAMINS,THERAPEUTIC TABLET PO SCH (09:09)
[2023-05-27] MEDS: MECLIZINE HCL 25 MG TABLET PO SCH ×2 (09:10→16:43)
[2023-05-27] MEDS: FOLIC ACID 1 MG TABLET PO SCH (09:10)
[2023-05-27] MEDS: buPROPion XL 150 MG TAB.SR.24H PO SCH (09:10)
[2023-05-27] MEDS: CALCIUM CITRA-VITAMIN D 315 MG-250 UNITS TABLET PO SCH (09:17)
[2023-05-27] MEDS: AMLODIPINE 5 MG TABLET PO SCH ×2 (09:17→20:00)
[2023-05-27] MEDS: CITALOPRAM 20 MG TABLET PO SCH (09:17)
[2023-05-27] MEDS: GLUCERNA SHAKE 237 ML CAN PO SCH (09:20)
[2023-05-27] MEDS: FEXOFENADINE HCL 180 MG TABLET PO SCH (09:39)
--- NOTE | 2023-05-27 10:00 | NUR ---
Rcvd pt in bed semifowler's position AAOX3-4. Resting comfortably at 2lpm O2 saturating 98%. Routine medications given and pt tolerated it. Seen by Dr. Barriga and swallow eval was ordered. All needs attended.
[2023-05-27 15:44] VITALS: BP 136/82; TEMP 98.3; O2SAT 91
[2023-05-27 17:15] VITALS: O2SAT 98
--- NOTE | 2023-05-27 18:33 | NUR ---
Pt denies any pain and discomfort. No SOB noted.Had a 15 gait training this am with the Physical Therapy. Needs attended. Routine meds given and pt. tolerated it well.
[2023-05-27] MEDS: ATORVASTATIN 10 MG TABLET PO SCH (20:00)
[2023-05-27 20:56] VITALS: BP 133/86; TEMP 98; O2SAT 92
[2023-05-28] VITALS (8 sets, daily range): BP systolic 118–151; BP diastolic 66–81; TEMP 97.6–98.8; O2SAT 92–99
[2023-05-28] MEDS: OXYCODONE/APAP 5-325 MG TABLET PO SCH ×3 (05:54→21:07)
[2023-05-28] MEDS: PANTOPRAZOLE SODIUM 40 MG TABLET.DR PO SCH (06:02)
[2023-05-28 06:50] LABS: HEMATOCRIT 23.9 % (31.2-41.9); MEAN CORPUSCULAR VOLUME 83.5 fL (75.5-95.3); PLATELET COUNT (AUTO) 290 K/uL (179-408)
[2023-05-28 07:10] LABS: CREATININE 1.1 mg/dL (0.6-1.3); MAGNESIUM 1.9 mg/dL (1.8-2.4); PHOSPHOROUS 2.9 mg/dL (2.5-4.9); POTASSIUM 3.6 mmol/L (3.5-5.1)
[2023-05-28] MEDS: MIRALAX 17 GM POWD.PACK PO SCH (09:00)
[2023-05-28] MEDS: FLUTICASONE/VILANTEROL 1 EACH BLST.W.DEV INH SCH (09:19)
[2023-05-28] MEDS: FLUTICASONE PROP NASAL SPRAY 16 GM BOTTLE NS SCH (09:21)
[2023-05-28] MEDS: URSODIOL 300 MG CAPSULE PO SCH ×2 (09:23→16:48)
[2023-05-28] MEDS: GLUCERNA SHAKE 237 ML CAN PO SCH (09:23)
[2023-05-28] MEDS: CHOLECALCIFEROL 1,000 UNIT TABLET PO SCH (09:24)
[2023-05-28] MEDS: ASPIRIN 81 MG TAB.CHEW PO SCH (09:24)
[2023-05-28] MEDS: MULTIVITAMINS,THERAPEUTIC TABLET PO SCH (09:24)
[2023-05-28] MEDS: GABAPENTIN 100 MG CAPSULE PO SCH ×3 (09:24→16:48)
[2023-05-28] MEDS: CALCIUM CITRA-VITAMIN D 315 MG-250 UNITS TABLET PO SCH (09:24)
[2023-05-28] MEDS: FOLIC ACID 1 MG TABLET PO SCH (09:25)
[2023-05-28] MEDS: AMLODIPINE 5 MG TABLET PO SCH ×2 (09:25→21:07)
[2023-05-28] MEDS: MECLIZINE HCL 25 MG TABLET PO SCH ×2 (09:25→16:48)
[2023-05-28] MEDS: FEXOFENADINE HCL 180 MG TABLET PO SCH (09:25)
[2023-05-28] MEDS: buPROPion XL 150 MG TAB.SR.24H PO SCH (09:25)
[2023-05-28] MEDS: CITALOPRAM 20 MG TABLET PO SCH (09:25)
[2023-05-28] MEDS: ATORVASTATIN 10 MG TABLET PO SCH (21:06)
[2023-05-29] VITALS (8 sets, daily range): BP systolic 120–157; BP diastolic 59–69; TEMP 97.6–98.4; O2SAT 90–98
[2023-05-29] MEDS: OXYCODONE/APAP 5-325 MG TABLET PO SCH ×3 (05:32→21:12)
--- NOTE | 2023-05-29 05:52 | NUR ---
Admitted for acute T-L1 spine fracture secondary to a fall. AAOx4 All needs attended. VSS Kept comfortable. Will monitor patient. Pain meds given as scheduled with relief noted. Continent of bowel and bladder. Siderails up for safety.
[2023-05-29] MEDS: PANTOPRAZOLE SODIUM 40 MG TABLET.DR PO SCH (06:16)
[2023-05-29 07:19] LABS: MEAN CORPUSCULAR HEMOGLOBIN 26.9 uug (24.7-32.8); MEAN CORPUSCULAR VOLUME 83.7 fL (75.5-95.3); PLATELET COUNT (AUTO) 255 K/uL (179-408)
[2023-05-29 07:45] LABS: CARBON DIOXIDE 32 mmol/L (21-32); CHLORIDE 106 mmol/L (98-107); MAGNESIUM 2.1 mg/dL (1.8-2.4); PHOSPHOROUS 3.7 mg/dL (2.5-4.9); POTASSIUM 3.9 mmol/L (3.5-5.1); UREA NITROGEN, BLOOD 30 mg/dL (7-18)
--- NOTE | 2023-05-29 07:51 | NUR ---
Critical hgb level results received, notified provider , awaiting response back. Patient informed of result and is aware she may be receiving blood transfusion, patient consents.
[2023-05-29 07:52] LABS: HEMATOCRIT 20.2 % (31.2-41.9)
[2023-05-29] MEDS: URSODIOL 300 MG CAPSULE PO SCH ×2 (08:55→17:52)
[2023-05-29] MEDS: FLUTICASONE PROP NASAL SPRAY 16 GM BOTTLE NS SCH (08:55)
[2023-05-29] MEDS: FLUTICASONE/VILANTEROL 1 EACH BLST.W.DEV INH SCH (08:55)
[2023-05-29] MEDS: MIRALAX 17 GM POWD.PACK PO SCH (08:55)
[2023-05-29] MEDS: MULTIVITAMINS,THERAPEUTIC TABLET PO SCH (08:55)
[2023-05-29] MEDS: MECLIZINE HCL 25 MG TABLET PO SCH ×2 (08:55→17:52)
[2023-05-29] MEDS: FEXOFENADINE HCL 180 MG TABLET PO SCH (08:55)
[2023-05-29] MEDS: ASPIRIN 81 MG TAB.CHEW PO SCH (08:56)
[2023-05-29] MEDS: CITALOPRAM 20 MG TABLET PO SCH (08:56)
[2023-05-29] MEDS: buPROPion XL 150 MG TAB.SR.24H PO SCH (08:56)
[2023-05-29] MEDS: GABAPENTIN 100 MG CAPSULE PO SCH ×3 (08:56→17:52)
[2023-05-29] MEDS: AMLODIPINE 5 MG TABLET PO SCH ×2 (08:56→20:36)
[2023-05-29] MEDS: FOLIC ACID 1 MG TABLET PO SCH (08:56)
[2023-05-29] MEDS: CALCIUM CITRA-VITAMIN D 315 MG-250 UNITS TABLET PO SCH (08:56)
[2023-05-29] MEDS: CHOLECALCIFEROL 1,000 UNIT TABLET PO SCH (08:56)
[2023-05-29] MEDS: GLUCERNA SHAKE 237 ML CAN PO SCH (08:57)
[2023-05-29 09:20] LABS: BILIRUBIN,DIRECT 0.1 mg/dL (0.0-0.2); BILIRUBIN,TOTAL 0.3 mg/dL (0.2-1.0); TOTAL PROTEIN, SERUM 5.6 g/dL (6.4-8.2)
--- NOTE | 2023-05-29 13:30 | NUR ---
Patient consents to blood transfusion, blood available. Pre transfusion vital signs taken. 1458 - Blood transfusion started, patient monitored, no reactions noted.
--- NOTE | 2023-05-29 13:57 | NUR ---
INTERDISCIPLINARY TEAM CONFERENCE
[2023-05-29 14:31] LABS: IRON, SERUM 11 ug/dL (50-175)
[2023-05-29 14:49] LABS: EOSINOPHILS % (MANUAL) 2 % (0-8); LYMPHOCYTES % (MANUAL) 27 % (20-40); MONOCYTES % (MANUAL) 16 % (2-10); NEUTROPHILS % (MANUAL) 55 % (42-75)
[2023-05-29 15:11] LABS: FERRITIN 36 ng/mL (8-252)
--- NOTE | 2023-05-29 17:35 | NUR ---
Blood transfusion ongoing and almost complete. No reactions noted. Patient informed need for stool specimen, no BM today.
--- NOTE | 2023-05-29 19:35 | NUR ---
NSG; Received patient lying in bed, alert, awake and oriented X4, Patient potentially hard of hearing In no acute distress, skin color pale. Denies pain, no SOB. With oxygen at 2L/min via nasal cannula. call light within reach.
[2023-05-29] MEDS: ATORVASTATIN 10 MG TABLET PO SCH (20:36)
[2023-05-30 04:00] VITALS: BP 135/65; TEMP 98.4; O2SAT 98
[2023-05-30 04:17] VITALS: O2SAT 98
--- NOTE | 2023-05-30 05:33 | NUR ---
NSG: REMAIN CALM AND COMFORTABLE. NO C/O PAIN OR DISCOMFORT AT THIS TIME. ASSISTED WITH ADL'S. CALL LIGHT W/IN REACH.
[2023-05-30] MEDS: OXYCODONE/APAP 5-325 MG TABLET PO SCH ×2 (05:35→13:23)
[2023-05-30] MEDS: PANTOPRAZOLE SODIUM 40 MG TABLET.DR PO SCH (06:04)
[2023-05-30 06:57] LABS: HEMATOCRIT 24.2 % (31.2-41.9); MEAN CORPUSCULAR HEMOGLOBIN 27.5 uug (24.7-32.8); MEAN CORPUSCULAR VOLUME 85.4 fL (75.5-95.3); PLATELET COUNT (AUTO) 259 K/uL (179-408)
[2023-05-30 07:04] LABS: CARBON DIOXIDE 31 mmol/L (21-32); CHLORIDE 104 mmol/L (98-107); CREATININE 1.1 mg/dL (0.6-1.3); MAGNESIUM 1.7 mg/dL (1.8-2.4); PHOSPHOROUS 3.8 mg/dL (2.5-4.9); POTASSIUM 4.1 mmol/L (3.5-5.1); UREA NITROGEN, BLOOD 28 mg/dL (7-18)
[2023-05-30 07:29] VITALS: BP 115/58; TEMP 98.4; O2SAT 98
[2023-05-30] MEDS: FOLIC ACID 1 MG TABLET PO SCH (08:27)
[2023-05-30] MEDS: FEXOFENADINE HCL 180 MG TABLET PO SCH (08:27)
[2023-05-30] MEDS: CALCIUM CITRA-VITAMIN D 315 MG-250 UNITS TABLET PO SCH (08:27)
[2023-05-30] MEDS: CHOLECALCIFEROL 1,000 UNIT TABLET PO SCH (08:27)
[2023-05-30] MEDS: GABAPENTIN 100 MG CAPSULE PO SCH ×2 (08:27→12:22)
[2023-05-30] MEDS: buPROPion XL 150 MG TAB.SR.24H PO SCH (08:27)
[2023-05-30 08:28] VITALS: BP 115/58
[2023-05-30] MEDS: MULTIVITAMINS,THERAPEUTIC TABLET PO SCH (08:28)
[2023-05-30] MEDS: CITALOPRAM 20 MG TABLET PO SCH (08:28)
[2023-05-30] MEDS: ASPIRIN 81 MG TAB.CHEW PO SCH (08:28)
[2023-05-30] MEDS: AMLODIPINE 5 MG TABLET PO SCH (08:28)
[2023-05-30] MEDS: MIRALAX 17 GM POWD.PACK PO SCH (08:29)
[2023-05-30] MEDS: MECLIZINE HCL 25 MG TABLET PO SCH (08:29)
[2023-05-30] MEDS: URSODIOL 300 MG CAPSULE PO SCH (08:30)
[2023-05-30] MEDS: FLUTICASONE PROP NASAL SPRAY 16 GM BOTTLE NS SCH (08:31)
[2023-05-30] MEDS: FLUTICASONE/VILANTEROL 1 EACH BLST.W.DEV INH SCH (08:31)
[2023-05-30] MEDS ORDERED: MAGNESIUM OXIDE 400 MG TABLET PO ONE (10:00)
[2023-05-30 11:53] VITALS: O2SAT 98
[2023-05-30] MEDS ORDERED: FLUT1BLS INH (12:29)
--- NOTE | 2023-05-30 15:59 | NUR ---
[facility] alert, oriented x4, no acute distress noted. patient belongings, money $117 and wallet given back to patient. patient signed the belongings with witness of another nurse on duty. no skin issues noted. patient is oxygen dependent. IV and ID removed. Addendum: 05/30/23 at 1616 by RUSTY RIOS RN RN discharge medications list faxed to [facility], refaxed with updated medications as well.
== END 2023-05-30 16:00 | disposition home health service (06) | DRG 559 ==
PROVIDERS: ADMIT Physical Medicine & Rehabilitation Pain Medicine; ATTEND Physical Medicine & Rehabilitation Pain Medicine
PROC: 30233N1 Transfusion of Nonautologous Red Blood Cells into Peripheral Vein, Percutaneous Approach (ICD-10-PCS; principal; 2023-05-29)
DX: S32.049D Unspecified fracture of fourth lumbar vertebra, subsequent encounter for fracture with routine healing (principal); N17.0 Acute kidney failure with tubular necrosis; D68.59 Other primary thrombophilia; J96.11 Chronic respiratory failure with hypoxia; G93.40 Encephalopathy, unspecified; N39.0 Urinary tract infection, site not specified; B96.20 Unspecified Escherichia coli [E. coli] as the cause of diseases classified elsewhere; S22.079D Unspecified fracture of T9-T10 vertebra, subsequent encounter for fracture with routine healing; M80.88XD Other osteoporosis with current pathological fracture, vertebra(e), subsequent encounter for fracture with routine healing; D64.9 Anemia, unspecified; E78.5 Hyperlipidemia, unspecified; G62.9 Polyneuropathy, unspecified; I10 Essential (primary) hypertension; J44.9 Chronic obstructive pulmonary disease, unspecified; I25.10 Atherosclerotic heart disease of native coronary artery without angina pectoris; W18.30XD Fall on same level, unspecified, subsequent encounter; E86.0 Dehydration; I70.0 Atherosclerosis of aorta; K74.3 Primary biliary cirrhosis; M19.90 Unspecified osteoarthritis, unspecified site; E11.36 Type 2 diabetes mellitus with diabetic cataract; K21.9 Gastro-esophageal reflux disease without esophagitis; R13.10 Dysphagia, unspecified; Z79.83 Long term (current) use of bisphosphonates; Z87.891 Personal history of nicotine dependence; Z88.6 Allergy status to analgesic agent; Z91.81 History of falling; R26.81 Unsteadiness on feet; R29.6 Repeated falls; R19.5 Other fecal abnormalities; Z88.8 Allergy status to other drugs, medicaments and biological substances
CPT/HCPCS: 36415; 70030-TC; 71045; 83550; 83735; 84100; 84300; 85025; 86850; 86900; 86901; 86920; 97535-GO-CO; J1650; J1940; J3535; J7042; J8499; J8597; P9016

== ENCOUNTER 2023-08-22 00:45 | Inpatient (IN) | payer MEDICARE ==
[2023-08-22] VITALS (10 sets, daily range): BP systolic 132–144; BP diastolic 63–80; TEMP 96.7–99.2; O2SAT 92–98
[~2023-08-22] VITALS: Ht 149.9 cm; Wt 55.0 kg
[~2023-08-22 00:45] MED LIST changes: +AMLO-212 PO; +FLUT1BLS IH; +FLUT1BLS INH; +HYDR-894 PO
[2023-08-22] MEDS ORDERED: MAGNESIUM SULFATE 2 GM in IV DEXTROSE 5% 100 ML IV ONE (01:30)
[2023-08-22] MEDS ORDERED: ALBUTEROL SULFATE 2.5 MG/3 ML NEBU NEB ONE (01:30)
[2023-08-22] MEDS ORDERED: IPRATROPIUM BROMIDE 0.5 MG/2.5 ML NEBU NEB ONE (01:30)
[2023-08-22] MEDS ORDERED: ALBUTEROL SULFATE 2.5 MG/3 ML NEBU ONE (01:34)
[2023-08-22] MEDS ORDERED: IPRATROPIUM BROMIDE 0.5 MG/2.5 ML NEBU ONE (01:34)
[2023-08-22 01:57] LABS: BASOPHILS # (AUTO) 0.1 K/UL (0.0-0.2); BASOPHILS % (AUTO) 0.9 % (0.0-2.0); EOSINOPHILS # (AUTO) 0.1 K/uL (0.0-0.7); EOSINOPHILS % (AUTO) 1.5 % (0.0-7.0); HEMATOCRIT 33.8 % (31.2-41.9); HEMOGLOBIN 10.7 g/dL (10.9-14.3); LYMPHOCYTES # (AUTO) 0.6 K/uL (0.8-4.8); MEAN CORPUSCULAR HEMOGLOBIN 26.2 uug (24.7-32.8); MEAN CORPUSCULAR HGB CONC 32 g/dL (32.3-35.6); MEAN CORPUSCULAR VOLUME 82.9 fL (75.5-95.3); MONOCYTES # (AUTO) 0.5 K/uL (0.1-1.30); MONOCYTES % (AUTO) 5.5 % (0.0-11.0); NEUTROPHILS # (AUTO) 8.5 K/uL (1.8-8.9); NEUTROPHILS % (AUTO) 86.1 % (38.5-71.5); PLATELET COUNT (AUTO) 249 K/uL (179-408); RED BLOOD CELL COUNT(AUTO) 4.08 MIL/uL (3.63-4.92); RED CELL DISTRIBUTION WIDTH 19.1 % (12.3-17.7); WHITE BLOOD COUNT (AUTO) 9.8 K/uL (3.8-11.8)
[2023-08-22 02:04] LABS: DIFFERENTIAL COMMENT 1
[2023-08-22 02:05] LABS: CALCIUM 10.3 mg/dL (8.5-10.1); CARBON DIOXIDE 31 mmol/L (21-32); CHLORIDE 103 mmol/L (98-107); CREATININE 1.1 mg/dL (0.6-1.3); GLUCOSE 129 mg/dL (74-106); POTASSIUM 3.6 mmol/L (3.5-5.1); SODIUM SERUM 137 mmol/L (136-145); UREA NITROGEN, BLOOD 27 mg/dL (7-18)
[2023-08-22 02:18] LABS: NT-PRO BNP 121 pg/mL (0-125)
[2023-08-22] MEDS ORDERED: MAGNESIUM SULFATE/D5W 100 ML ONE (02:25)
[2023-08-22] MEDS ORDERED: MAGNESIUM SULFATE 1 GM/2 ML VIAL ONE (02:26)
[2023-08-22] MEDS ORDERED: IV NS 1000 ML 1,000 ML IV ONE (04:30)
[2023-08-22] MEDS ORDERED: TRAZODONE 50 MG TABLET PO PRN (06:15)
[2023-08-22] MEDS ORDERED: hydrALAZINE HCL 25 MG TABLET PO PRN (06:15)
[2023-08-22] MEDS ORDERED: FEXOFENADINE HCL 180 MG TABLET PO SCH (09:00)
[2023-08-22] MEDS: GABAPENTIN 100 MG CAPSULE PO SCH ×3 (09:15→16:23)
[2023-08-22] MEDS: CITALOPRAM 20 MG TABLET PO SCH (09:15)
[2023-08-22] MEDS: FLUTICASONE/VILANTEROL 1 EACH BLST.W.DEV INH SCH (09:15)
[2023-08-22] MEDS: FLUTICASONE PROP NASAL SPRAY 16 GM BOTTLE NS SCH (09:15)
[2023-08-22] MEDS: FOLIC ACID 1 MG TABLET PO SCH (09:15)
[2023-08-22] MEDS ORDERED: REMEDY ESSENTIAL ZINC PASTE 113 GM TP PRN (09:30)
[2023-08-22] MEDS ORDERED: MAGNESIUM HYDROXIDE 30 ML LIQUID UDC PO PRN (09:30)
[2023-08-22] MEDS ORDERED: ONDANSETRON 4 MG/2 ML VIAL IV PRN (09:30)
[2023-08-22] MEDS ORDERED: ENOXAPARIN SODIUM 40 MG/0.4 ML DISP.SYRIN SQ SCH (09:30)
[2023-08-22] MEDS ORDERED: AZITHROMYCIN 250 MG TABLET PO ONE (11:00)
[2023-08-22] MEDS: ASPIRIN 81 MG TAB.CHEW PO SCH (11:20)
[2023-08-22] MEDS: ENOXAPARIN SODIUM 30 MG/0.3 ML DISP.SYRIN SQ SCH (11:21)
[2023-08-22] MEDS: IPRATROPIUM BROMIDE 0.5 MG/2.5 ML NEBU NEB SCH ×4 (11:30→23:54)
[2023-08-22] MEDS: ALBUTEROL SULFATE 2.5 MG/3 ML NEBU NEB SCH ×4 (11:30→23:54)
[2023-08-22] MEDS: methylPREDNISolone SOD SUCC 40 MG/ML VIAL IV SCH ×2 (14:07→22:01)
[2023-08-22] MEDS ORDERED: LOSA50TA39 PO (16:14)
[2023-08-22] MEDS: LOSARTAN POTASSIUM 50 MG TABLET PO SCH (17:42)
[2023-08-22] MEDS: AMLODIPINE 5 MG TABLET PO SCH (17:42)
[2023-08-22] MEDS: ATORVASTATIN 10 MG TABLET PO SCH (21:20)
[2023-08-23] VITALS (17 sets, daily range): BP systolic 107–131; BP diastolic 53–62; TEMP 96.9–98.8; O2SAT 94–99
[2023-08-23] MEDS: IPRATROPIUM BROMIDE 0.5 MG/2.5 ML NEBU NEB SCH ×5 (03:49→20:47)
[2023-08-23] MEDS: ALBUTEROL SULFATE 2.5 MG/3 ML NEBU NEB SCH ×5 (03:50→20:47)
[2023-08-23] MEDS: methylPREDNISolone SOD SUCC 40 MG/ML VIAL IV SCH ×2 (05:56→20:30)
[2023-08-23] MEDS: PANTOPRAZOLE SODIUM 40 MG TABLET.DR PO SCH (06:26)
[2023-08-23 07:13] LABS: BASOPHILS % (AUTO) 0.3 % (0.0-2.0); HEMATOCRIT 31.5 % (31.2-41.9); HEMOGLOBIN 10.2 g/dL (10.9-14.3); LYMPHOCYTES # (AUTO) 0.4 K/uL (0.8-4.8); MEAN CORPUSCULAR HEMOGLOBIN 26.4 uug (24.7-32.8); MEAN CORPUSCULAR HGB CONC 32 g/dL (32.3-35.6); MEAN CORPUSCULAR VOLUME 81.8 fL (75.5-95.3); MONOCYTES # (AUTO) 0.1 K/uL (0.1-1.30); MONOCYTES % (AUTO) 2.7 % (0.0-11.0); PLATELET COUNT (AUTO) 234 K/uL (179-408); RED BLOOD CELL COUNT(AUTO) 3.85 MIL/uL (3.63-4.92); WHITE BLOOD COUNT (AUTO) 4.5 K/uL (3.8-11.8)
[2023-08-23 07:27] LABS: DIFFERENTIAL COMMENT 1
[2023-08-23 07:36] LABS: CALCIUM 9.4 mg/dL (8.5-10.1); CARBON DIOXIDE 30 mmol/L (21-32); CHLORIDE 103 mmol/L (98-107); GLUCOSE 134 mg/dL (74-106); PHOSPHOROUS 3.6 mg/dL (2.5-4.9); SODIUM SERUM 137 mmol/L (136-145); UREA NITROGEN, BLOOD 23 mg/dL (7-18)
[2023-08-23 08:03] LABS: CHOLESTEROL 112 mg/dL (<200); HDL CHOLESTEROL 34 mg/dL (40-60); TRIGLYCERIDES 178 MG/DL (30-150)
[2023-08-23] MEDS: CITALOPRAM 20 MG TABLET PO SCH (10:25)
[2023-08-23] MEDS: GABAPENTIN 100 MG CAPSULE PO SCH ×4 (10:25→17:00)
[2023-08-23] MEDS: ASPIRIN 81 MG TAB.CHEW PO SCH (10:25)
[2023-08-23] MEDS: AMLODIPINE 5 MG TABLET PO SCH (10:26)
[2023-08-23] MEDS: FOLIC ACID 1 MG TABLET PO SCH (10:26)
[2023-08-23] MEDS: AZITHROMYCIN 250 MG TABLET PO SCH (10:26)
[2023-08-23] MEDS: LOSARTAN POTASSIUM 50 MG TABLET PO SCH (10:27)
[2023-08-23] MEDS: ENOXAPARIN SODIUM 30 MG/0.3 ML DISP.SYRIN SQ SCH (10:28)
[2023-08-23] MEDS: URSODIOL 300 MG CAPSULE PO SCH ×2 (10:32→21:04)
[2023-08-23] MEDS: FLUTICASONE PROP NASAL SPRAY 16 GM BOTTLE NS SCH (10:33)
[2023-08-23] MEDS: FLUTICASONE/VILANTEROL 1 EACH BLST.W.DEV INH SCH (10:34)
[2023-08-23] MEDS: ATORVASTATIN 10 MG TABLET PO SCH (20:29)
[2023-08-23] MEDS ORDERED: URSODIOL 300 MG CAPSULE PO SCH (21:00)
[2023-08-24] VITALS (13 sets, daily range): BP systolic 105–155; BP diastolic 52–76; TEMP 97–98.1; O2SAT 91–100
[2023-08-24] MEDS: IPRATROPIUM BROMIDE 0.5 MG/2.5 ML NEBU NEB SCH ×7 (00:11→23:30)
[2023-08-24] MEDS: ALBUTEROL SULFATE 2.5 MG/3 ML NEBU NEB SCH ×7 (00:12→23:30)
[2023-08-24] MEDS: PANTOPRAZOLE SODIUM 40 MG TABLET.DR PO SCH (07:00)
[2023-08-24] MEDS: URSODIOL 300 MG CAPSULE PO SCH ×2 (08:14→20:25)
[2023-08-24] MEDS: AMLODIPINE 5 MG TABLET PO SCH (08:14)
[2023-08-24] MEDS: ASPIRIN 81 MG TAB.CHEW PO SCH (08:14)
[2023-08-24] MEDS: FOLIC ACID 1 MG TABLET PO SCH (08:14)
[2023-08-24] MEDS: CITALOPRAM 20 MG TABLET PO SCH (08:14)
[2023-08-24] MEDS: LOSARTAN POTASSIUM 50 MG TABLET PO SCH (08:14)
[2023-08-24] MEDS: GABAPENTIN 100 MG CAPSULE PO SCH ×3 (08:14→16:12)
[2023-08-24] MEDS: methylPREDNISolone SOD SUCC 40 MG/ML VIAL IV SCH ×2 (08:19→20:51)
[2023-08-24] MEDS: AZITHROMYCIN 250 MG TABLET PO SCH (08:19)
[2023-08-24] MEDS: FLUTICASONE/VILANTEROL 1 EACH BLST.W.DEV INH SCH (08:24)
[2023-08-24] MEDS: FLUTICASONE PROP NASAL SPRAY 16 GM BOTTLE NS SCH (08:24)
[2023-08-24] MEDS: ENOXAPARIN SODIUM 40 MG/0.4 ML DISP.SYRIN SQ SCH (10:07)
[2023-08-24] MEDS: ATORVASTATIN 10 MG TABLET PO SCH (20:25)
[2023-08-25] VITALS (9 sets, daily range): BP systolic 124–158; BP diastolic 64–79; TEMP 98.2–98.4; O2SAT 96–99
[2023-08-25] MEDS: IPRATROPIUM BROMIDE 0.5 MG/2.5 ML NEBU NEB SCH ×3 (03:49→11:22)
[2023-08-25] MEDS: ALBUTEROL SULFATE 2.5 MG/3 ML NEBU NEB SCH ×3 (03:49→11:22)
[2023-08-25] MEDS: PANTOPRAZOLE SODIUM 40 MG TABLET.DR PO SCH (06:31)
[2023-08-25] MEDS: AMLODIPINE 5 MG TABLET PO SCH (08:18)
[2023-08-25] MEDS: ASPIRIN 81 MG TAB.CHEW PO SCH (08:18)
[2023-08-25] MEDS: FOLIC ACID 1 MG TABLET PO SCH (08:18)
[2023-08-25] MEDS: URSODIOL 300 MG CAPSULE PO SCH (08:18)
[2023-08-25] MEDS: AZITHROMYCIN 250 MG TABLET PO SCH (08:18)
[2023-08-25] MEDS: CITALOPRAM 20 MG TABLET PO SCH (08:19)
[2023-08-25] MEDS: LOSARTAN POTASSIUM 50 MG TABLET PO SCH (08:19)
[2023-08-25] MEDS: methylPREDNISolone SOD SUCC 40 MG/ML VIAL IV SCH (08:20)
[2023-08-25] MEDS: GABAPENTIN 100 MG CAPSULE PO SCH ×2 (08:37→12:14)
[2023-08-25] MEDS: FLUTICASONE PROP NASAL SPRAY 16 GM BOTTLE NS SCH (08:38)
[2023-08-25] MEDS: FLUTICASONE/VILANTEROL 1 EACH BLST.W.DEV INH SCH (08:38)
[2023-08-25] MEDS ORDERED: MECL-159 PO (08:57)
[2023-08-25] MEDS ORDERED: PRED50TA PO (09:00)
[2023-08-25] MEDS: ENOXAPARIN SODIUM 40 MG/0.4 ML DISP.SYRIN SQ SCH (10:33)
[2023-08-26] MEDS ORDERED: methylPREDNISolone SOD SUCC 40 MG/ML VIAL IV SCH (09:00)
== END 2023-08-25 12:27 | DRG 191 ==
LOC: ER 00:48 → MEDSURG3 05:45
PROVIDERS: ADMIT Nurse Practitioner Acute Care; ATTEND Internal Medicine
DX: J43.9 Emphysema, unspecified (principal); J96.11 Chronic respiratory failure with hypoxia; J98.11 Atelectasis; R44.3 Hallucinations, unspecified; E86.0 Dehydration; Z90.49 Acquired absence of other specified parts of digestive tract; M81.0 Age-related osteoporosis without current pathological fracture; E78.5 Hyperlipidemia, unspecified; I25.10 Atherosclerotic heart disease of native coronary artery without angina pectoris; I10 Essential (primary) hypertension; K74.3 Primary biliary cirrhosis; D64.9 Anemia, unspecified; H26.9 Unspecified cataract; M19.90 Unspecified osteoarthritis, unspecified site; K21.9 Gastro-esophageal reflux disease without esophagitis; Z99.81 Dependence on supplemental oxygen; H81.10 Benign paroxysmal vertigo, unspecified ear; Z87.891 Personal history of nicotine dependence; Z79.899 Other long term (current) drug therapy; Z79.51 Long term (current) use of inhaled steroids; Z88.6 Allergy status to analgesic agent
CPT/HCPCS: 36415; 70450; 71045; 83605; 83735; 84100; 84484; 85025; 93005; 94640; 94664; 94760; A4663; G0378; J1650; J2920; J3475; J3535; J3590; J7040; Q0144

== ENCOUNTER 2023-09-18 11:52 | Inpatient (IN) | payer MEDICARE ==
[~2023-09-18] VITALS: Ht 152.4 cm; Wt 54.6 kg
[~2023-09-18 11:52] MED LIST changes: -FLUT1BLS INH; -LOSA100T31 PO; +LOSA50TA39 PO; +PRED50TA PO
[2023-09-18] MEDS ORDERED: IV NORMAL SALINE 1000 ML BAG IV ONE (12:15)
[2023-09-18] MEDS ORDERED: AZITHROMYCIN 250 MG TABLET PO ONE (12:15)
[2023-09-18] MEDS ORDERED: DEXAMETHASONE SOD PHOSPHATE 4 MG INJ IV ONE (12:15)
[2023-09-18] MEDS ORDERED: DEXAMETHASONE SOD PHOSPHATE 10 MG INJ ONE (12:17)
[2023-09-18] MEDS ORDERED: AZITHROMYCIN 250 MG TABLET ONE (12:17)
[2023-09-18 12:47] LABS: ALANINE AMINOTRANSFERASE 31 U/L (14-59); ALBUMIN 2.8 g/dL (3.4-5.0); ALKALINE PHOSPHATASE 359 U/L (50-136); ASPARTATE AMINOTRANSFERASE 31 U/L (15-37); BILIRUBIN,DIRECT 0.8 mg/dL (0.0-0.2); BILIRUBIN,TOTAL 1.3 mg/dL (0.2-1.0); CARBON DIOXIDE 25 mmol/L (21-32); CHLORIDE 99 mmol/L (98-107); CREATININE 1.1 mg/dL (0.6-1.3); GLUCOSE 104 mg/dL (74-106); NT-PRO BNP 1600 pg/mL (0-125); POTASSIUM 3.3 mmol/L (3.5-5.1); SODIUM SERUM 136 mmol/L (136-145); TOTAL PROTEIN, SERUM 6.7 g/dL (6.4-8.2); UREA NITROGEN, BLOOD 26 mg/dL (7-18)
[2023-09-18 12:47] LABS: ABG BASE EXCESS -0.2 mmol/L; ABG HCO3 23.1 mmol/L; ABG PCO2 33.2 mmHg (35.0-45.0); ABG PH 7.461 (7.350-7.450); ABG PO2 68.1 mmHg (75.0-100.0); ABG SITE RIGHT RADIAL; COHb 0.7 % (0.5-1.5); MetHb 0.1 % (0.0-1.5); O2Hb 93.4 % (94.0-97.0); VENT MODE Nasal Cannula
[2023-09-18 12:50] VITALS: O2SAT 97
[2023-09-18] MEDS ORDERED: ALBUTEROL SULFATE 2.5 MG/3 ML NEBU ONE (12:59)
[2023-09-18] MEDS ORDERED: IPRATROPIUM BROMIDE 0.5 MG/2.5 ML NEBU ONE (12:59)
[2023-09-18 13:00] VITALS: O2SAT 93
[2023-09-18] MEDS ORDERED: ALBUTEROL SULFATE 2.5 MG/3 ML NEBU NEB ONE (13:00)
[2023-09-18] MEDS ORDERED: IPRATROPIUM BROMIDE 0.5 MG/2.5 ML NEBU NEB ONE (13:00)
[2023-09-18 13:20] LABS: BASOPHILS % (AUTO) 0.3 % (0.0-2.0); DIFFERENTIAL COMMENT 0; EOSINOPHILS % (AUTO) 0.5 % (0.0-7.0); HEMATOCRIT 33.6 % (31.2-41.9); HEMOGLOBIN 10.7 g/dL (10.9-14.3); LYMPHOCYTES # (AUTO) 0.4 K/uL (0.8-4.8); LYMPHOCYTES % (AUTO) 4.4 % (20.5-51.5); MEAN CORPUSCULAR HEMOGLOBIN 27.3 uug (24.7-32.8); MEAN CORPUSCULAR HGB CONC 32 g/dL (32.3-35.6); MEAN CORPUSCULAR VOLUME 85.9 fL (75.5-95.3); MONOCYTES # (AUTO) 1.2 K/uL (0.1-1.30); MONOCYTES % (AUTO) 12.6 % (0.0-11.0); NEUTROPHILS # (AUTO) 7.6 K/uL (1.8-8.9); NEUTROPHILS % (AUTO) 82.2 % (38.5-71.5); PLATELET COUNT (AUTO) 276 K/uL (179-408); RED BLOOD CELL COUNT(AUTO) 3.91 MIL/uL (3.63-4.92); RED CELL DISTRIBUTION WIDTH 18.9 % (12.3-17.7); WHITE BLOOD COUNT (AUTO) 9.2 K/uL (3.8-11.8)
[2023-09-18] MEDS ORDERED: NITROGLYCERIN OINT 1 GM PACKET TP ONE ×2 (13:54→14:00)
[2023-09-18] MEDS ORDERED: FUROSEMIDE 40 MG/4 ML VIAL ONE (13:54)
[2023-09-18] MEDS ORDERED: FUROSEMIDE 40 MG/4 ML VIAL IV ONE (14:00)
[2023-09-18 14:27] LABS: *BLOOD, URINE NEGATIVE (NEGATIVE); *CLARITY,URINE CLEAR (CLEAR); *COLOR,URINE YELLOW (YELLOW); *KETONES,URINE NEGATIVE (NEGATIVE); *PROTEIN,URINE 1+ (NEGATIVE); LEUKOCYTE ESTERASE ,URINE NEGATIVE (NEGATIVE); NITRITE, URINE NEGATIVE (NEGATIVE); PH,URINE 5.5 (5.0-8.0); UGLUCOSE NEGATIVE (NEGATIVE)
[2023-09-18 14:53] LABS: *BILIRUBIN,URIN 1+ (NEGATIVE)
[2023-09-18 15:45] VITALS: O2SAT 93; O2SAT 98
[2023-09-18] MEDS ORDERED: UMEC62.5 IH (17:39)
[2023-09-18] MEDS ORDERED: CALC1TAB30 PO (17:39)
[2023-09-18] MEDS ORDERED: URSO300C12 PO (17:44)
[2023-09-18] MEDS ORDERED: REMEDY ESSENTIAL ZINC PASTE 113 GM TP PRN (23:15)
[2023-09-18] MEDS ORDERED: ONDANSETRON 4 MG/2 ML VIAL IV PRN (23:15)
[2023-09-18] MEDS ORDERED: ZOLPIDEM 5 MG TABLET PO PRN (23:15)
[2023-09-18] MEDS ORDERED: MAGNESIUM HYDROXIDE 30 ML LIQUID UDC PO PRN (23:15)
[2023-09-18] MEDS ORDERED: ACETAMINOPHEN 325 MG TABLET PO PRN (23:15)
[2023-09-19] VITALS (10 sets, daily range): BP systolic 118–145; BP diastolic 59–76; TEMP 97.9–98.6; O2SAT 93–99
[2023-09-19] MEDS: ENOXAPARIN SODIUM 40 MG/0.4 ML DISP.SYRIN SQ SCH ×2 (01:37→20:42)
[2023-09-19] MEDS ORDERED: CEFEPIME HCL 1 G VIAL ONE (03:32)
[2023-09-19] MEDS ORDERED: CEFEPIME HCL 1 G in IV DEXTROSE 5% 50 ML IV SCH (06:00)
[2023-09-19] MEDS: PANTOPRAZOLE SODIUM 40 MG TABLET.DR PO SCH (06:11)
[2023-09-19 06:34] LABS: BASOPHILS % (AUTO) 0.1 % (0.0-2.0); HEMATOCRIT 27.7 % (31.2-41.9); HEMOGLOBIN 8.9 g/dL (10.9-14.3); LYMPHOCYTES # (AUTO) 0.4 K/uL (0.8-4.8); LYMPHOCYTES % (AUTO) 5.9 % (20.5-51.5); MEAN CORPUSCULAR HEMOGLOBIN 27.6 uug (24.7-32.8); MEAN CORPUSCULAR HGB CONC 32 g/dL (32.3-35.6); MEAN CORPUSCULAR VOLUME 85.5 fL (75.5-95.3); MONOCYTES # (AUTO) 0.6 K/uL (0.1-1.30); MONOCYTES % (AUTO) 7.4 % (0.0-11.0); NEUTROPHILS # (AUTO) 6.6 K/uL (1.8-8.9); NEUTROPHILS % (AUTO) 86.6 % (38.5-71.5); PLATELET COUNT (AUTO) 263 K/uL (179-408); RED BLOOD CELL COUNT(AUTO) 3.24 MIL/uL (3.63-4.92); RED CELL DISTRIBUTION WIDTH 18.7 % (12.3-17.7); WHITE BLOOD COUNT (AUTO) 7.6 K/uL (3.8-11.8)
[2023-09-19 06:48] LABS: DIFFERENTIAL COMMENT 1
[2023-09-19 06:56] LABS: CALCIUM 8.4 mg/dL (8.5-10.1); CARBON DIOXIDE 26 mmol/L (21-32); CHLORIDE 103 mmol/L (98-107); CHOLESTEROL 143 mg/dL (<200); GLUCOSE 114 mg/dL (74-106); HDL CHOLESTEROL 64 mg/dL (40-60); PHOSPHOROUS 2.5 mg/dL (2.5-4.9); POTASSIUM 3.7 mmol/L (3.5-5.1); SODIUM SERUM 137 mmol/L (136-145); TRIGLYCERIDES 24 MG/DL (30-150); UREA NITROGEN, BLOOD 28 mg/dL (7-18)
[2023-09-19] MEDS: IPRATROPIUM BROMIDE 0.5 MG/2.5 ML NEBU NEB SCH ×3 (08:54→19:38)
[2023-09-19] MEDS: ALBUTEROL SULFATE 2.5 MG/ 0.5 ML NEBU NEB SCH ×3 (08:54→19:38)
[2023-09-19] MEDS ORDERED: FUROSEMIDE 40 MG/4 ML VIAL IV SCH (09:00)
[2023-09-19] MEDS: methylPREDNISolone SOD SUCC 40 MG/ML VIAL IV SCH ×2 (09:16→21:24)
[2023-09-19] MEDS: CEFEPIME HCL 1 G in IV DEXTROSE 5% 50 ML IV SCH (17:35)
[2023-09-19] MEDS ORDERED: BENZOCAINE/MENTH/CETYLPYRD LOZENGE MM PRN (20:15)
[2023-09-19] MEDS: URSODIOL 300 MG CAPSULE PO SCH (21:00)
[2023-09-19] MEDS: ATORVASTATIN 10 MG TABLET PO SCH (21:03)
[2023-09-20] VITALS (11 sets, daily range): BP systolic 104–144; BP diastolic 52–74; TEMP 97.4–99.5; O2SAT 93–100
[2023-09-20] MEDS: CEFEPIME HCL 1 G in IV DEXTROSE 5% 50 ML IV SCH ×2 (05:26→17:19)
[2023-09-20] MEDS: PANTOPRAZOLE SODIUM 40 MG TABLET.DR PO SCH (06:34)
[2023-09-20 06:55] LABS: BASOPHILS % (AUTO) 0.1 % (0.0-2.0); HEMATOCRIT 28.6 % (31.2-41.9); HEMOGLOBIN 9.3 g/dL (10.9-14.3); LYMPHOCYTES # (AUTO) 0.5 K/uL (0.8-4.8); LYMPHOCYTES % (AUTO) 6.5 % (20.5-51.5); MEAN CORPUSCULAR HEMOGLOBIN 27.8 uug (24.7-32.8); MEAN CORPUSCULAR HGB CONC 33 g/dL (32.3-35.6); MEAN CORPUSCULAR VOLUME 85.3 fL (75.5-95.3); MONOCYTES # (AUTO) 0.5 K/uL (0.1-1.30); MONOCYTES % (AUTO) 6.2 % (0.0-11.0); NEUTROPHILS # (AUTO) 6.8 K/uL (1.8-8.9); NEUTROPHILS % (AUTO) 87.2 % (38.5-71.5); PLATELET COUNT (AUTO) 295 K/uL (179-408); RED BLOOD CELL COUNT(AUTO) 3.35 MIL/uL (3.63-4.92); RED CELL DISTRIBUTION WIDTH 18.7 % (12.3-17.7); WHITE BLOOD COUNT (AUTO) 7.8 K/uL (3.8-11.8)
[2023-09-20 07:08] LABS: DIFFERENTIAL COMMENT 1
[2023-09-20 07:26] LABS: CALCIUM 8.7 mg/dL (8.5-10.1); CREATININE 0.9 mg/dL (0.6-1.3); PHOSPHOROUS 3.6 mg/dL (2.5-4.9)
[2023-09-20] MEDS: ALBUTEROL SULFATE 2.5 MG/ 0.5 ML NEBU NEB SCH ×3 (08:06→19:40)
[2023-09-20] MEDS: IPRATROPIUM BROMIDE 0.5 MG/2.5 ML NEBU NEB SCH ×3 (08:06→19:39)
[2023-09-20] MEDS: MULTIVIT, IRON, MIN NO. 8, FA TABLET PO SCH (08:42)
[2023-09-20] MEDS: CHOLECALCIFEROL 1,000 UNIT TABLET PO SCH (08:42)
[2023-09-20] MEDS: ASPIRIN 81 MG TAB.CHEW PO SCH (08:42)
[2023-09-20] MEDS: CITALOPRAM 20 MG TABLET PO SCH (08:42)
[2023-09-20] MEDS: FEXOFENADINE HCL 180 MG TABLET PO SCH (08:43)
[2023-09-20] MEDS: AMLODIPINE 5 MG TABLET PO SCH (08:43)
[2023-09-20] MEDS: FOLIC ACID 1 MG TABLET PO SCH (08:43)
[2023-09-20] MEDS: methylPREDNISolone SOD SUCC 40 MG/ML VIAL IV SCH ×2 (08:43→20:16)
[2023-09-20] MEDS: buPROPion XL 150 MG TAB.SR.24H PO SCH (08:43)
[2023-09-20] MEDS: LOSARTAN POTASSIUM 50 MG TABLET PO SCH (08:43)
[2023-09-20] MEDS: FLUTICASONE/VILANTEROL 1 EACH BLST.W.DEV IH SCH (08:45)
[2023-09-20] MEDS: FLUTICASONE PROP NASAL SPRAY 16 GM BOTTLE NS SCH (08:46)
[2023-09-20 10:24] LABS: ABG BASE EXCESS 2.8 mmol/L; ABG HCO3 27.1 mmol/L; ABG PCO2 40.6 mmHg (35.0-45.0); ABG PH 7.443 (7.350-7.450); ABG PO2 93.7 mmHg (75.0-100.0); ABG SITE RIGHT BRACHIAL; ABG TOTAL HEMOGLOBIN 10.8 G/dL (12.0-16.0); COHb 0.1 % (0.5-1.5); MetHb 0.1 % (0.0-1.5); O2Hb 97.2 % (94.0-97.0); VENT MODE Nasal Cannula
[2023-09-20] MEDS: URSODIOL 300 MG CAPSULE PO SCH (20:15)
[2023-09-20] MEDS: ATORVASTATIN 10 MG TABLET PO SCH (20:16)
[2023-09-20] MEDS: ENOXAPARIN SODIUM 40 MG/0.4 ML DISP.SYRIN SQ SCH (20:16)
[2023-09-21] VITALS (7 sets, daily range): BP systolic 144–150; BP diastolic 73–76; TEMP 97.2–98.6; O2SAT 96–99
[2023-09-21] MEDS: CEFEPIME HCL 1 G in IV DEXTROSE 5% 50 ML IV SCH (05:05)
[2023-09-21] MEDS: PANTOPRAZOLE SODIUM 40 MG TABLET.DR PO SCH (06:14)
[2023-09-21] MEDS: ALBUTEROL SULFATE 2.5 MG/ 0.5 ML NEBU NEB SCH ×3 (07:35→13:47)
[2023-09-21] MEDS: IPRATROPIUM BROMIDE 0.5 MG/2.5 ML NEBU NEB SCH ×3 (07:35→13:47)
[2023-09-21] MEDS: FLUTICASONE PROP NASAL SPRAY 16 GM BOTTLE NS SCH (08:28)
[2023-09-21] MEDS: AMLODIPINE 5 MG TABLET PO SCH (08:32)
[2023-09-21] MEDS: LOSARTAN POTASSIUM 50 MG TABLET PO SCH (08:33)
[2023-09-21] MEDS: buPROPion XL 150 MG TAB.SR.24H PO SCH (08:33)
[2023-09-21] MEDS: ASPIRIN 81 MG TAB.CHEW PO SCH (08:33)
[2023-09-21] MEDS: FOLIC ACID 1 MG TABLET PO SCH (08:33)
[2023-09-21] MEDS: FEXOFENADINE HCL 180 MG TABLET PO SCH (08:33)
[2023-09-21] MEDS: CHOLECALCIFEROL 1,000 UNIT TABLET PO SCH (08:33)
[2023-09-21] MEDS: CITALOPRAM 20 MG TABLET PO SCH (08:33)
[2023-09-21] MEDS: MULTIVIT, IRON, MIN NO. 8, FA TABLET PO SCH (08:34)
[2023-09-21] MEDS: methylPREDNISolone SOD SUCC 40 MG/ML VIAL IV SCH (08:34)
[2023-09-21] MEDS: FLUTICASONE/VILANTEROL 1 EACH BLST.W.DEV IH SCH (09:07)
== END 2023-09-21 16:42 | DRG 190 ==
LOC: ER 11:52 → TELE3 16:32 → MEDSURG3 09-20 13:55
PROVIDERS: ADMIT Nurse Practitioner Acute Care; ATTEND Nurse Practitioner Acute Care
DX: J43.9 Emphysema, unspecified (principal); J18.9 Pneumonia, unspecified organism; J96.21 Acute and chronic respiratory failure with hypoxia; J44.0 Chronic obstructive pulmonary disease with (acute) lower respiratory infection; Z99.81 Dependence on supplemental oxygen; Z79.899 Other long term (current) drug therapy; Z87.891 Personal history of nicotine dependence; Z79.51 Long term (current) use of inhaled steroids; Z88.6 Allergy status to analgesic agent; Z91.011 Allergy to milk products; E78.5 Hyperlipidemia, unspecified; F32.A Depression, unspecified; K74.3 Primary biliary cirrhosis; M19.90 Unspecified osteoarthritis, unspecified site; M81.0 Age-related osteoporosis without current pathological fracture; H26.9 Unspecified cataract; D64.9 Anemia, unspecified; I11.9 Hypertensive heart disease without heart failure
CPT/HCPCS: 36415; 36600; 71045; 76705; 82803; 83605; 83735; 84100; 84484; 85025; 85730; 87040; 93005; 93307; 94640; A4606; A4663; G0378; J0692; J1100; J1650; J1940; J2920; J3535; J3590; J7040; Q0144